=== PATIENT | female | born 2000 | race Caucasian/White ===

== ENCOUNTER 2021-04-16 03:12 | Emergency (ER) | payer OTHER ==
[~2021-04-16] VITALS: Ht 152.4 cm; Wt 106.6 kg
[2021-04-16 03:31] VITALS: BP 146/83
--- NOTE | 2021-04-16 03:38 | NUR ---
PT TAKEN TO BED 06.
--- NOTE | 2021-04-16 04:01 | NUR ---
20 Y/O F BIB SELF FOR SORE THROAT FOR TWO WEEKS , PT COMPLAINS OF NAUSEA AND DIARRHEA BUT NO FEVER. DID NOT TAKE ANY MEDS AT HOME. A&O X4. PT STATES 10/10 PAIN,PT STATES IT FEELS SORE BUT WHEN SHE SWALLOWS IT FILLS LIKE STABBING. PT COVID VACCINATED. ALLERGIES: NKA
--- NOTE | 2021-04-16 04:29 | NUR ---
Dr. López examining patient.
[2021-04-16] MEDS ORDERED: KETOROLAC 30 MG/ML VIAL IM ONE (04:35)
--- NOTE | 2021-04-16 05:01 | NUR ---
PT SWABBED FOR STREP. INFORMED PT THAT LAB WOULD CALL HER IF SHE IS POSITIVE.
[2021-04-16] MEDS ORDERED: NAPR-54 PO (05:29)
[2021-04-16 05:35] VITALS: BP 145/78
--- NOTE | 2021-04-16 05:50 | NUR ---
Patient discharged with v/s stable. Written and verbal after care instructions given and explained. Patient alert, oriented and verbalized understanding of instructions. Ambulatory with steady gait. All questions addressed prior to discharge. ID band removed. Patient advised to follow up with PMD. Rx of NAPROXEN given. Opportunity to ask questions provided and answered.
--- NOTE | 2021-04-16 05:58 | NUR ---
Jayne lockett in [facility] - 04/16/21 at 0558 by [id number]
== END 2021-04-16 05:50 | disposition home or self-care (01) ==
LOC: MED 03:12
DX: J02.9 Acute pharyngitis, unspecified (principal); Z79.899 Other long term (current) drug therapy; Z90.49 Acquired absence of other specified parts of digestive tract
CPT/HCPCS: 87081; 96372; 99283; J1885